=== PATIENT | male | born 1985 | race Caucasian/White ===

== ENCOUNTER 2021-10-11 12:54 | Emergency (ER) | payer OTHER ==
[2021-10-11] MEDS ORDERED: TRIAMCINOLONE454 GM TOP (15:12)
[2021-10-11] MEDS ORDERED: CEPHALEXIN500 MG PO (15:12)
== END 2021-10-11 15:22 | disposition home or self-care (01) ==
LOC: FER 12:54
DX: K12.2 Cellulitis and abscess of mouth (principal); L29.9 Pruritus, unspecified; J45.909 Unspecified asthma, uncomplicated; Z88.0 Allergy status to penicillin; Z28.310 Unvaccinated for COVID-19
CPT/HCPCS: 87880; 99283